=== PATIENT | male | born 1940 | race Caucasian/White ===

== ENCOUNTER → 2018-02-14 | Day surgery (SDC) | payer MEDICARE, OTHER ==
[~2018-02-14] MED LIST: AMLODIPINE BESYL5 MG PO; ASPIRIN81 MG PO; ATORVASTATIN CA20 MG PO; B1 PO; BETIMOL5 M1 OU; BLACK CHERRY PO; CO Q10200 MG PO; CRANBERRY200 MG PO; DIOVAN HCT 3201 EAC1 PO; DYRENIUM50 MG PO; FENTANYL CITRATE/PF 100MCG/2 ML INJ ONE; FIBER WELL GUMMIES PO; FISH OIL 1,0001 EAC2 PO; HAIR SKIN NAILS PO; LECITHIN1200 MG PO; LUMIGAN2.5 M1 OU; METOPROLOL TART25 MG PO; MIDAZOLAM HCL 2 MG/2 ML VIAL ONE; MINOXIDIL2.5 MG PO; POTASSIUM CHLO10 ME1 PO; SUPER B COMPLE150 MG PO; TURMERIC1 GM PO
== END | disposition home or self-care (01) ==
LOC: OR 09:45
PROVIDERS: ATTEND Internal Medicine Gastroenterology
DX: Z12.11 Encounter for screening for malignant neoplasm of colon (principal); K57.30 Diverticulosis of large intestine without perforation or abscess without bleeding; H40.9 Unspecified glaucoma; I25.810 Atherosclerosis of coronary artery bypass graft(s) without angina pectoris; I10 Essential (primary) hypertension; R00.1 Bradycardia, unspecified; Z88.5 Allergy status to narcotic agent; Z88.7 Allergy status to serum and vaccine; Z01.810 Encounter for preprocedural cardiovascular examination; Z79.82 Long term (current) use of aspirin; Z68.32 Body mass index [BMI] 32.0-32.9, adult; Z95.1 Presence of aortocoronary bypass graft; Z95.5 Presence of coronary angioplasty implant and graft; Z80.0 Family history of malignant neoplasm of digestive organs
CPT/HCPCS: 93005; G0105; J2250; 45378